=== PATIENT | male | born 1990 ===

== ENCOUNTER 2017-07-15 09:17 | Emergency (ER) | payer OTHER ==
[2017-07-15 09:23] VITALS: BP 138/84; PULSE 89; RESP 20; TEMP 96.7; O2SAT 99
--- NOTE | 2017-07-15 10:37 | ED PDOC ---
HPI: Male Pain Time Seen by Provider: 07/15/17 09:29 Chief Complaint (Nursing): Male Genitourinary Chief Complaint (Provider): Male genitourinary History Per: Patient History/Exam Limitations: no limitations Onset/Duration Of Symptoms: Days (x4) Current Symptoms Are (Timing): Still Present Severity: Mild Pain Scale Rating Of: 4 Associated Symptoms: Other (some penile itching) Additional Complaint(s): Sky Minor is a 27 year old male, with no past medical history, who presents to the emergency department complaining of dysuria associated with some penile itching onset for 4 days. Patient denies fever, hematuria, penile discharge, belly or testicular pain. No further medical complaints. PMD: None provided. Past Medical History Reviewed: Historical Data, Nursing Documentation, Vital Signs Vital Signs: Last Vital Signs Temp 96.7 F L 07/15/17 09:22 Pulse 89 07/15/17 09:22 Resp 20 07/15/17 09:22 BP 138/84 07/15/17 09:22 Pulse Ox 99 07/15/17 09:22 - Family History Family History: States: Unknown Family Hx - Allergies Allergies/Adverse Reactions: Allergies Allergy/AdvReac Type Severity Reaction Status Date / Time No Known Allergies Allergy Verified 07/15/17 09:29 Review of Systems ROS Statement: Except As Marked, All Systems Reviewed And Found Negative Constitutional: Negative for: Fever Gastrointestinal: Negative for: Abdominal Pain (no belly pain) Genitourinary Male: Positive for: Dysuria, Other (some penile itching). Negative for: Hematuria, Penile Discharge, Scrotal Pain Physical Exam - Reviewed Nursing Documentation Reviewed: Yes Vital Signs Reviewed: Yes - Physical Exam Appears: Positive for: Well, Non-toxic, No Acute Distress Head Exam: Positive for: ATRAUMATIC, NORMAL INSPECTION, NORMOCEPHALIC Skin: Positive for: Normal Color, Warm, Dry Eye Exam: Positive for: EOMI, Normal appearance, PERRL Neck: Positive for: Normal, Painless ROM, Supple Cardiovascular/Chest: Positive for: Regular Rate, Rhythm. Negative for: Murmur Respiratory: Positive for: Normal Breath Sounds. Negative for: Respiratory Distress Gastrointestinal/Abdominal: Positive for: Normal Exam, Bowel Sounds, Soft. Negative for: Tenderness (nontender belly) Male Genital Exam: Positive for: normal genitalia (uncircumsized). Negative for : lesions (or warts), urethral discharge Back: Positive for: Normal Inspection (no midline tenderness). Negative for: L CVA Tenderness, R CVA Tenderness Extremity: Positive for: Normal ROM. Negative for: Pedal Edema, Deformity Neurologic/Psych: Positive for: Alert, Oriented. 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 I have reviewed the chart and agree that the record accurately reflects my personal performance of the history, physical exam, medical decision making, and the department course for this patient. I have also personally directed, reviewed, and agree with the discharge instructions and disposition. Disposition - Clinical Impression Clinical Impression: Dysuria - Disposition Referrals: [facility] [Outside] Disposition: Routine/Home Disposition Time: 12:34 Condition: STABLE Instructions: Dysuria (ED) Forms: [facility] (Kazakh), [facility] (Bengali) Print Language: HAITIAN
[2017-07-15 10:39] LABS: RBC URINE 1 /hpf (0-3); URINE BACTERIA RARE (<OCC); URINE BILIRUBIN NEGATIVE (NEGATIVE); URINE BLOOD NEGATIVE (NEGATIVE); URINE COLOR YELLOW (YELLOW); URINE GLUCOSE (UA) NEG (Normal); URINE KETONE NEGATIVE (NEGATIVE); URINE LEUKOCYTE ESTERASE NEG Leu/uL (Negative); URINE PROTEIN NEGATIVE (NEGATIVE); URINE UROBILINOGEN 0.2-1.0 mg/dL (0.2-1.0); WBC URINE 1 /hpf (0-5)
[2017-07-15] MEDS ORDERED: cefTRIAXone (Rocephin) 250 mg Inj IM STA (12:16)
[2017-07-15] MEDS ORDERED: cefTRIAXone (Rocephin) 250 mg Inj ONE (12:56)
[2017-07-15] MEDS ORDERED: Sterile Water 10 ML IV ONE (12:58)
== END 2017-07-15 13:24 | disposition home or self-care (01) ==
LOC: H.ER 09:17
DX: R30.0 Dysuria (principal)
CPT/HCPCS: 81003; 87086; 87491; 87591; 96372; 99283; J0696